=== PATIENT | male | born 1995 | race Two or more races ===

== ENCOUNTER 2023-04-16 13:56 | Emergency (ER) | payer MEDICAID ==
[~2023-04-16] VITALS: Ht 162.6 cm; Wt 69.8 kg
[2023-04-16 16:08] VITALS: BP 92/61; PULSE 89; RESP 16; TEMP 99.5; O2SAT 97
[2023-04-16] MEDS: HYDROcodone-ACET 5/325MG TAB PO ONE (16:37)
[2023-04-16] MEDS ORDERED: TERB1CRE EX (17:43)
[2023-04-16] MEDS ORDERED: HYDR-4902 PO (17:43)
[2023-04-16] MEDS ORDERED: IBUP-1455 PO (17:43)
[2023-04-16] MEDS: KETOROLAC TROMETH 30 MG/ML 1ML VIAL IM ONE (18:10)
== END 2023-04-16 18:14 | disposition home or self-care (01) ==
LOC: ER 13:56
DX: G62.9 Polyneuropathy, unspecified (principal); B35.6 Tinea cruris; Z88.6 Allergy status to analgesic agent
CPT/HCPCS: 73030; 96372; 99283; J1885

== ENCOUNTER 2024-12-01 22:39 | Emergency (ER) | payer MEDICAID ==
[~2024-12-01] VITALS: Ht 162.6 cm; Wt 70.0 kg
[~2024-12-01 22:39] MED LIST: HYDR-4902 PO; IBUP-1455 PO; TERB1CRE EX
--- NOTE | 2024-12-01 23:40 | ED.PDOC ---
Back pain HPI HPI Comments 29-year-old male with scoliosis presents with the ER with a chief complaint of left upper back pain for the past 2 days. Patient says that he has been sleeping on his left side for the past 3 days due to scoliosis. Patient woke up with left shoulder blade pain and left upper back pain yesterday morning, no radiation, constant, exacerbates with neck or left arm movements, denies any trauma or falls, active and passive range of motion are intact but with pain. Denies any rashes or fever or chills. He had similar episode in the past, 2 years back when he saw specialist and was recommended Flexeril. Patient reports that his scoliosis is 0.003 Patient seen and examined, localized tenderness over the left shoulder blade, active and passive range of motion intact with pain. No sensory or motor deficits, no midline cervical tenderness Attestation note: Dr. Palomares: I was the supervising attending for this ED encounter. Please see the resident's notes. I HAVE PERSONALLY SEEN AND EVALUATED THIS PATIENT. I was available for questions and consultations. HPI: Poor Historian. REVIEW OF SYSTEMS: CONSTITUTIONAL: Denies acute: fever, diaphoresis, chills, generalized weakness. HEAD: Denies acute: headache, photophobia Eyes: Denies acute: Double vision, vision loss, eye pain, eye discharge. EARS: Denies acute: tinnitus, hearing loss, ear discharge, ear pain, THROAT: Denies acute: sore throat, swelling, difficulty swallowing , pain with sw allowing, change in voice. NECK: Denies acute: neck pain, neck swelling, stiff neck. HEART: Denies acute : chest pain, palpitations, LUNGS: Denies acute: SOB, wheezing, cough, hemoptysis ABDOMEN: Denies acute: abdominal pain, Nausea, Vomiting, diarrhea, melena , hematemesis, hematochezia SKIN: Denies acute: rash, redness, lesions, itchiness. EXTREMITIES: Denies acute: calf pain, numbness, tingling, weakness, denies pain in extremity. Denies acute: Low back pain. Neuro: Denies acute: focal neurological deficit, motor or sensory focal neurological deficit, tremors, seizure like activity, confusion, dizziness, change in mental status, loss of bowel or bladder function, cauda equina like symptoms. : Denies acute: dysuria, hematuria, flank pain, increase in urinary frequency. PSYCH: Denies acute: hallucination, suicidal ideation, homicidal ideation. PHYSICAL EXAM: General: ----no----acute distress, awake and alert. Head: normocephalic, atraumatic. Neck: supple, trachea is midline, no swelling. Throat: Normal phonation. Eyes:, no erythema, no purulent discharge, no proptosis, no icterus. Lungs: no apparent respiratory distress, Able to speak in full sentences. Neuro: Awake, Alert, oriented to name, self, situation, follows commands GCS=15. Speech is normal. Skin: no petechia, no purpura, no cyanosis, non-pale, not jaundice. Lower extremities: --no - Pitting edema no deformity, no focal swelling, no calf TTP. Makes eye contact. moves all four extremities. Face: no apparent facial droop. Evaluation of the area of complaint: Left shoulder has no deformity or swelling or erythema. No tender to palpation. Patient has full range of motion of the left upper extremity with normal strength. Radial pulses palpable. Sensation and motor are present. 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 Ambulating in the ED independently. ED COURSE: DISCLAIMER: This medical document was created using an electronic medical record system with voice recognition software and computerized dictation system. Although this document has been carefully reviewed, there might still be some phonetic and typographical errors. Occasional wrong-word or "sound-alike" substitutions may have occurred due to the inherent limitations of voice recognition software. These areas are purely typographical due to imperfections of the software programs and do not reflect any compromise in the patient's medical care. Please read the chart carefully and recognize, using context, where these substitutions have occurred. Differential diagnosis: Injury of Ligamental, nerve, cartilage, septic joint, bursitis, rotator cuff, DVT, cellulitis MDM: MDM: patient presented with the above HPI.--recurrent left shoulder pain nontraumatic----workup was initiated. patient was found with the above mentioned diagnosis. the following medications were ordered: please refer to order lists of meds and tests obtained by myself Dr. Palomares. Patient ED course and VS have been stabilized. Patient has been reassessed in the ED and remained in a stable condition. Pertinent incidental findings were discussed with the patient and/or family. Patient/family voices understanding and is agreeable with plan. Patient has been observed in the ED adequate length of time to insure improvement/stability. Escalation of care considered: Consideration of escalation to observation or admission Patient was DISCHARGED home in a stable condition. All the reports of any imaging studies that were ordered by myself were reviewed by myself. Chief Complaint: Upper Extremity Time Seen by MD: 23:07 Primary Care Provider: NONE Reviewed Notes: Nurses Notes Allergies: Coded Allergies: Ibuprofen (Verified Allergy, Severe, 04/16/23) Home Meds Active Scripts Hydrocodone-Acetaminophen (Hydrocodone Bitartrate/AC 5-325 mg) 1 Tab Tab, 1 TAB PO Q6HP PRN, #20 TAB Prov:MALI CHENEY PAC 04/16/23 Terbinafine Hcl (Terbinafine Hcl) 1 % Cre, 1 % EX BID for 20 Days, #60 GM Prov:MALI CHENEY PAC 04/16/23 Ibuprofen Micronized (Ibuprofen) 800 Mg Tab, 800 MG PO Q8HP PRN, #30 TAB Prov:MALI CHENEY [facility] 04/16/23 Information Source: Patient Mode of Arrival: Ambulatory Past Medical History Past Medical History (Other): Scoliosis Surgical History: Denies all surgeries Family History Family History: Reviewed,noncontributory to illness, No family hx of Cancer, No family hx of DM, No family hx of Heart chris, No family hx of HTN, No family hx ofKidney chris, No family hx of Liver chris, No family hx of Lung chris, No family hx of Stroke Social History Smoker: Non-Smoker Alcohol: Denies ETOH Use Drugs: Denies Drug Use Lives In: Home Constitutional: denies: chills, diaphoresis, fatigue, fever, malaise, sweats, weakness, others EENTM: denies: blurred vision, double vision, ear bleeding, ear discharge, ear drainage, ear pain, ear ringing, eye pain, eye redness, hearing loss, mouth pain, mouth swelling, nasal discharge, nose bleeding, nose congestion, nose pain, photophobia, tearing, throat pain, throat swelling, voice changes, others Respiratory: denies: cough, hemoptysis, orthopnea, SOB at rest, shortness of breath, SOB with excertion, stridor, wheezing, others Cardiovascular: denies: chest pain, dizzy spells, diaphoresis, Dyspnea on exertion, edema, irregular heart beat, left arm pain, lightheadedness, palpitations, PND, syncope, others Gastrointestinal: denies: abdomen distended, abdominal pain, blood streaked bowels, constipated, diarrhea, dysphagia, difficulty swallowing, hematemesis, melena, nausea, poor appetite, poor fluid intake, rectal bleeding, rectal pain, vomiting, others Genitourinary: denies: burning, dysuria, flank pain, frequency, hematuria, incontinence, penile discharge, penile sore, pain, testicle pain, testicle swelling, urgency, others Neurological: denies: dizziness, fainting, headache, left sided numbness, left sided weakness, numbness, paresthesia, pre-existing deficit, right sided numbness, right sided weakness, seizure, speech problems, tingling, tremors, weakness, others Musculoskeletal: reports: back pain Integumetry: denies: bruises, change in color, change in hair/nails, dryness, laceration, lesions, lumps, rash, wounds, others Allergic/Immunocompromised: denies: Difficulty Healing, Frequent Infections, Hives, Itching, others Hematologic/Lymphatic: denies: anemia, blood clots, easy bleeding, easy bruising, swollen glands, others Endocrine: denies: excessive hunger, excessive sweating, excessive thirst, excessive urination, flushing, intolerance to cold, intolerance to heat, unexplained weight gain, unexplained weight loss, others Psychiatric: denies: anxiety, bipolar disorder, depression, hopeless, panic disorder, schizophrenia, sleepless, suicidal, others Physical Exam General Appearance: No Apparent Distress, Normal HEENT: NOT DONE Neck: Non-Tender, Normal Inspection Respiratory: No Respiratory Distress, Normal Breath Sounds Cardiovascular: Regular Rate/Rhythm Breast Exam: Deferred Gastrointestinal: Non Tender, Normal Bowel Sounds Genitalia: Deferred Pelvic: Deferred Rectal: Deferred Extremities: Other (ocalized tenderness over the left shoulder blade, active and passive range of motion intact with pain. No sensory or motor deficits, no midline cervical tenderness) Neurologic: No Motor Deficits, Normal Mood Cerebellar Function: NOT DONE Reflexes: NOT DONE Skin: Dry Lymphatic: NOT DONE Was a procedure done? Was a procedure done?: No Back Pain Differential Dx Differential Diagnosis: Musculoskeletal Pain Other Differential Diagnosis Rotator cuff tendinitis X-Ray, Labs, Meds, VS Vital Signs Date Time Temp Pulse Resp B/P (MAP) Pulse Ox O2 Delivery O2 Flow Rate FiO2 12/02/24 03:22 Room Air* 0 21 12/02/24 03:15 99.7 88 20 118/77 (91) 95 99.7 12/01/24 22:41 98.1 88 18 122/74 96 98.1 Current Medications Medications (Trade) Dose Ordered Sig/Megan Route Start Time Stop Time Status Last Admin Ketorolac Tromethamine (Toradol Injection) 60 mg ONCE ONCE IM 12/02/24 02:45 12/02/24 02:46 DC 12/02/24 03:13 Dexamethasone Sodium Phosphate (Decadron Injection) 10 mg ONCE ONCE IM 12/02/24 02:45 12/02/24 02:46 DC 12/02/24 03:13 Acetaminophen/ Hydrocodone Bitart ([place] 5/325MG Tab) 1 tab ONCE ONCE PO 12/02/24 02:45 12/02/24 02:46 DC 12/02/24 03:14 X-Ray, Labs, Meds, VS Comment Shoulder x-ray shows 1. No acute abnormality of the left shoulder. Images Reviewed?: Images reviewed and evaluated by me Time of 1ST Reevaluation: 01:00 Reevaluation 1ST: Unchanged Time of 2ND Reevaluation: 02:40 Reevaluation 2ND: Unchanged Consultation: PCP Patient Education/Counseling: Diagnosis, Treatment Family Education/Counseling: No Family Present SEPSIS Sepsis Screen Date sepsis recognized/suspect: Dec 01, 2024 Time Sepsis recognized/suspect: 2244 Recent Procedure: No On Antibiotic Therapy: No Respiratory Rate >20: No Heart Rate >90: No Temp<36 C (96.8 F) or >38.3 C: No SBP <90 or MAP <65 mmHG: No New Acute Mental Status Change: No Is the patient on CPAP, BIPAP,: No Physician Orders L Shoulder 2+ View Xray (12/01/24 23:06) Vital Signs Date Time Temp Pulse Resp B/P (MAP) Pulse Ox O2 Delivery O2 Flow Rate FiO2 12/02/24 03:22 Room Air* 0 21 12/02/24 03:15 99.7 88 20 118/77 (91) 95 99.7 12/01/24 22:41 98.1 88 18 122/74 96 98.1 Medications Medications Dose Ordered Sig/Megan Route Start Time Stop Time Status Last Admin Dose Admin Acetaminophen/ Hydrocodone Bitart 1 tab ONCE ONCE PO 12/02/24 02:45 12/02/24 02:46 DC 12/02/24 03:14 Dexamethasone Sodium Phosphate 10 mg ONCE ONCE IM 12/02/24 02:45 12/02/24 02:46 DC 12/02/24 03:13 Ketorolac Tromethamine 60 mg ONCE ONCE IM 12/02/24 02:45 12/02/24 02:46 DC 12/02/24 03:13 Departure 1 Departure Time of Disposition: 03:30 Impression: Primary Impression: Musculoskeletal back pain Additional Impression: Scoliosis Disposition: 01 HOME / SELF CARE / HOMELESS Condition: Stable Comments Take ibuprofen/Tylenol 3 times daily as needed for pain control Please go to the ER if you notice increasing pain or swelling not relieved by medication on rest, numbness, tingling, coldness in the toes or foot, worsening redness, discharge or fever, sudden difficulty moving dose or new weakness. Critical Care Note Critical Care Time?: No Stability Stability form required: No MARCOS LUJAN RESIDENT Dec 01, 2024 23:39 LUDA PALOMARES DO Dec 02, 2024 02:50
--- NOTE | 2024-12-02 00:03 | DVH ---
CLINICAL INDICATION: pain TECHNIQUE: 3 views XY L SHOULDER 2+ VIEW XRAY Comparison: CR SHOULDER LEFT 3 VW on DOS: 06/23/23, CR SHOULDER RIGHT 3 VW on DOS: 06/23/23, XY R SHOUL NIA 2+ VIEW XRAY on DOS: 04/16/23 FINDINGS: No acute fracture or dislocation. No significant degenerative change. Unremarkable soft tissues and i tanesha chest. IMPRESSION: 1. No acute abnormality of the left shoulder.
[2024-12-02] MEDS: KETOROLAC TROMETH 60MG/2ML VIAL IM ONE (03:13)
[2024-12-02] MEDS: HYDROcodone-ACET 5/325MG TAB PO ONE (03:14)
[2024-12-02 03:15] VITALS: BP 118/77; PULSE 88; RESP 20; TEMP 99.7; O2SAT 95
== END 2024-12-02 03:34 | disposition home or self-care (01) ==
LOC: ER 22:39
DX: M41.9 Scoliosis, unspecified (principal); M54.6 Pain in thoracic spine; M25.512 Pain in left shoulder; Z88.6 Allergy status to analgesic agent
CPT/HCPCS: 73030; 96372; 99284; J1100; J1885